=== PATIENT | female | born 1985 | race Caucasian/White ===

== ENCOUNTER → 2016-09-22 | Outpatient (CLI) | payer BC ==
[~2016-09-22] MED LIST: PRENTAB26 PO
--- NOTE | 2016-09-22 11:40 | DIAGNOSTIC IMAGING REPORT ---
SOFT TISSUE NECK CLINICAL HISTORY: R22.1 Sensation of lump in throat. Foreign body [id number] COMPARISON STUDY: None. FINDINGS: The lung apices are clear. The cervical spine appears intact. The contours of the hypopharynx are within normal limits. The epiglottis and prevertebral soft tissues are normal in thickness. The trachea is midline and patent. No radiopaque foreign bodies. IMPRESSION: Normal neck radiograph. No radiopaque foreign bodies. Electronically signed by: Mark Goldman M.D. 09/22/2016 11:38 AM Dictated Date/Time: 09/22/2016 11:36 AM
[2016-09-22 12:19] LABS: BASO % 0.4 %; BASO ABS # 0.02 K/uL (0-0.2); COMPLETE YES; HEMATOCRIT 38.4 % (37-47); IG% 0.2 %; LYMPH ABS # 2.04 K/uL (1.2-3.4); MEAN CELL VOLUME 91.9 fL (80-100); MEAN CORPUSCULAR HEMOGLOBIN 31.1 pg (25-34); MEAN CORPUSCULAR HGB CONC 33.9 g/dl (32-36); MEAN PLATELET VOLUME 10.1 fL (7.4-10.4); MONO % 7.3 %; NEUT % 49.1 %; PLATELET COUNT 231 K/uL (130-400); RED BLOOD COUNT 4.18 M/uL (4.2-5.4); WHITE BLOOD COUNT 5.37 K/uL (4.8-10.8)
== END | disposition home or self-care (01) ==
LOC: C.RAD1850 10:57
PROVIDERS: ATTEND Family Medicine
DX: R22.1 Localized swelling, mass and lump, neck (principal)